=== PATIENT | male | born 1960 | race Caucasian/White ===

== ENCOUNTER 2021-07-09 11:54 | Emergency (ER) | payer MEDICARE, OTHER ==
[~2021-07-09] VITALS: Ht 172.7 cm; Wt 74.8 kg
[2021-07-09] MEDS ORDERED: IV NORMAL SALINE 500 ML BAG IV ONE (12:15)
[2021-07-09 12:25] LABS: HEMATOCRIT 23.8 % (36.7-47.1); MEAN CORPUSCULAR HEMOGLOBIN 29.4 uug (23.8-33.4); MEAN CORPUSCULAR VOLUME 87.9 fL (73.0-96.2); PLATELET COUNT (AUTO) 362 K/uL (152-348)
[2021-07-09 12:32] LABS: CREATININE 3.8 mg/dL (0.6-1.3); POTASSIUM 5.7 mmol/L (3.5-5.1)
--- NOTE | 2021-07-09 12:38 | NUR ---
PT IS IN ROOM #2B. DR MORRIS EVALUATED THE PT.
[2021-07-09] MEDS ORDERED: INSULIN REGULAR, HUMAN 300 UNIT/3 ML VIAL IV ONE (12:45)
[2021-07-09] MEDS ORDERED: CALCIUM CHLORIDE 1 GM/10 ML DISP.SYRIN IVP ONE ×2 (12:45→12:56)
[2021-07-09] MEDS ORDERED: SODIUM BICARBONATE 8.4% 50 MEQ/50 ML DISP.SYRIN IV ONE ×2 (12:45→12:55)
[2021-07-09] MEDS ORDERED: DEXTROSE 50% 50 ML DISP.SYRIN IV ONE (12:45)
[2021-07-09] MEDS ORDERED: SODIUM POLYSTYRENE SULFONATE 15 G/60 ML LIQUID UDC PO ONE (12:45)
[2021-07-09] MEDS ORDERED: DEXTROSE 50% 50 ML DISP.SYRIN ONE (12:54)
[2021-07-09] MEDS ORDERED: INSULIN REGULAR, HUMAN 300 UNIT/3 ML VIAL ONE (12:55)
[2021-07-09] MEDS ORDERED: SODIUM POLYSTYRENE SULFONATE 15 G/60 ML LIQUID UDC ONE (12:56)
[2021-07-09] MEDS ORDERED: AZITHROMYCIN IV 500 MG in IV DEXTROSE 5% 250 ML IV ONE (13:00)
[2021-07-09] MEDS ORDERED: CEFTRIAXONE 1 G in IV DEXTROSE 5% 50 ML IV ONE (13:00)
[2021-07-09] MEDS ORDERED: CEFTRIAXONE /D5W 50ML IVPB **ER PYXIS IV ONE (13:19)
[2021-07-09] MEDS ORDERED: AZITHROMYCIN 500MG/ D5W 250ML IVPB **ER PYXIS ONLY IV ONE (13:20)
[2021-07-09] MEDS ORDERED: IV NORMAL SALINE 1000 ML BAG IV ONE (15:30)
[2021-07-09] MEDS ORDERED: DOXY-326 PO (15:35)
--- NOTE | 2021-07-09 17:40 | NUR ---
PT WAS D/C'd TO HOME BY DR MORRIS. D/C INSTRUCTIONS GIVEN TO THE PT BY DR MORRIS.
[2021-07-09 17:42] VITALS: BP 142/84
== END 2021-07-09 17:43 | disposition home or self-care (01) ==
LOC: ER 11:54
DX: I95.1 Orthostatic hypotension (principal); E87.5 Hyperkalemia; J18.9 Pneumonia, unspecified organism; Z86.16 Personal history of COVID-19; I70.0 Atherosclerosis of aorta; R94.31 Abnormal electrocardiogram [ECG] [EKG]; E11.22 Type 2 diabetes mellitus with diabetic chronic kidney disease; N18.9 Chronic kidney disease, unspecified; D63.1 Anemia in chronic kidney disease
CPT/HCPCS: 36415; 71045; 80048; 82962 ×2; 84132; 84484; 85025; 93005; 96361; 96365; 96366; 96367; 96375; 99291; J0456; J0696; J1815; J3490 ×3; 70030-TC; A4663; J7030